=== PATIENT | male | born 1950 | race Caucasian/White ===

== ENCOUNTER → 2024-11-11 12:10 | Outpatient (CLI) | payer MEDICARE, SELFPAY ==
[2024-11-11 18:56] LABS: Add Manual Diff / Slide Review NO; Basophils Absolute Auto 0 /uL (0-100); Basophils Percent Auto 0.5 % (0-2); Eosinophils Absolute Auto 100 /uL (0-450); Eosinophils Percent Auto 1.8 % (2-4); Hematocrit 30.8 % (41-53); Hemoglobin 10.1 g/dL (13.5-17.5); Lymphocytes Absolute Auto 700 /uL (1100-4500); Mean Corpuscular HGB Conc 32.9 % (30-36); Mean Corpuscular Volume 85.1 fL (80-100); Monocytes Absolute Auto 600 /uL (0-900); Monocytes Percent Auto 10.9 % (3-14); Neutrophils Absolute Auto 4300 /uL (1500-7000); Neutrophils Percent Auto 74.8 % (50-75); Platelet Count 171 X10^3/uL (150-400); Red Blood Cell Count 3.62 X10^6/uL (4.5-5.9); Red Cell Distribution Width 16.1 % (11.6-14.8); White Blood Cell Count 5.7 X10^3/uL (4.5-11.0)
[2024-11-11 19:18] LABS: Alanine Aminotransferase 22 IU/L (<50); Albumin 4.2 g/dL (3.5-5.0); Albumin Globulin Ratio 1.8 (1.0-2.8); Alkaline Phosphatase 116 U/L (38-126); Aspartate Aminotransferase 37 IU/L (17-59); BUN Creatinine Ratio 26.8 (6-22); Bilirubin Total 0.8 mg/dL (0.2-1.3); Bilirubin Unconjugated 0.4 mg/dL (0.0-1.1); Blood Urea Nitrogen 26 mg/dL (9-20); Calcium 8.8 mg/dL (8.4-10.2); Carbon Dioxide 23 mmol/L (22-32); Chloride 105 mmol/L (98-107); Estimated Glomerular Filt Rate > 60 mL/min (>60); Globulin 2.3 g/dL (1.7-4.1); Glucose 94 mg/dL (80-110); HEMOLYSIS 17 (0-50); Potassium 4.5 mmol/L (3.4-5.1); Sodium 138 mmol/L (137-145); Total Protein 6.5 g/dL (6.3-8.2)
[2024-11-11 19:51] LABS: Testosterone 32.1 ng/dL (71.8-623)
== END ==
PROVIDERS: Visit Provider Specialist
DX: C61 Malignant neoplasm of prostate (principal); R53.83 Other fatigue; E29.1 Testicular hypofunction
CPT/HCPCS: 80048; 80076; 84153; 84403; 85025

== ENCOUNTER → 2024-11-23 10:24 | Outpatient (CLI) | payer MEDICARE, SELFPAY ==
[2024-11-23 19:24] LABS: Prostate Specific Antigen 4.47 ng/mL (0.10-4.00)
[2024-11-23 19:26] LABS: Testosterone 11.1 ng/dL (71.8-623)
== END ==
DX: C61 Malignant neoplasm of prostate (principal)
CPT/HCPCS: 84153; 84403

== ENCOUNTER → 2024-12-21 14:01 | Outpatient (CLI) | payer MEDICARE, SELFPAY ==
[2024-12-21 18:55] LABS: HEMOLYSIS < 15 (0-50); Iron 76 ug/dL (49-181)
[2024-12-21 18:59] LABS: Alanine Aminotransferase 30 IU/L (<50); Albumin 3.7 g/dL (3.5-5.0); Albumin Globulin Ratio 1.7 (1.0-2.8); Alkaline Phosphatase 121 U/L (38-126); Aspartate Aminotransferase 44 IU/L (17-59); BUN Creatinine Ratio 17.5 (6-22); Bilirubin Total 0.9 mg/dL (0.2-1.3); Bilirubin Unconjugated 0.5 mg/dL (0.0-1.1); Blood Urea Nitrogen 21 mg/dL (9-20); Calcium 8.3 mg/dL (8.4-10.2); Carbon Dioxide 25 mmol/L (22-32); Chloride 104 mmol/L (98-107); Estimated Glomerular Filt Rate > 60 mL/min (>60); Globulin 2.2 g/dL (1.7-4.1); Glucose 90 mg/dL (70-99); HEMOLYSIS < 15 (0-50); Potassium 4.5 mmol/L (3.4-5.1); Sodium 137 mmol/L (137-145); Total Protein 5.9 g/dL (6.3-8.2)
[2024-12-21 19:05] LABS: Reticulocyte Count, Percent 1.9 % (0.9-2.6)
[2024-12-21 19:06] LABS: Percent Iron Saturation 23 % (20-50); Total Iron Binding Capacity 325 ug/dL (261-462); Transferrin 268 mg/dL (206-381)
[2024-12-21 19:36] LABS: Ferritin 99 ng/mL (18-464)
[2024-12-21 19:45] LABS: Add Manual Diff / Slide Review NO; Basophils Absolute Auto 100 /uL (0-100); Basophils Percent Auto 1.8 % (0-2); Eosinophils Absolute Auto 100 /uL (0-450); Eosinophils Percent Auto 2.5 % (2-4); Hematocrit 28.7 % (41-53); Hemoglobin 9.5 g/dL (13.5-17.5); Lymphocytes Absolute Auto 600 /uL (1100-4500); Lymphocytes Percent Auto 14.1 % (25-40); Mean Corpuscular Hemoglobin 28.1 PG (26-34); Mean Corpuscular Volume 85.4 fL (80-100); Monocytes Absolute Auto 600 /uL (0-900); Monocytes Percent Auto 15.3 % (3-14); Neutrophils Absolute Auto 2700 /uL (1500-7000); Neutrophils Percent Auto 66.3 % (50-75); Platelet Count 152 X10^3/uL (150-400); Red Blood Cell Count 3.36 X10^6/uL (4.5-5.9); Red Cell Distribution Width 15.5 % (11.6-14.8)
[2024-12-21 20:07] LABS: Folate > 20.0 ng/mL (2.76-20.0); Vitamin B12 > 1000 pg/mL (239-931)
[2024-12-23 22:07] LABS: Erythropoietin 29.8 mIU/mL (2.6-18.5)
== END ==
PROVIDERS: Referring Provider Nurse Practitioner Family; Visit Provider Nurse Practitioner Family
DX: C61 Malignant neoplasm of prostate (principal); D64.9 Anemia, unspecified; R53.83 Other fatigue; E53.8 Deficiency of other specified B group vitamins; E29.1 Testicular hypofunction
CPT/HCPCS: 80048; 80076; 82607; 82668; 82728; 82746; 83540; 83550; 84153; 84403; 85025; 85045

== ENCOUNTER → 2025-02-23 12:09 | Outpatient (CLI) | payer MEDICARE, SELFPAY ==
[2025-02-23 19:26] LABS: HEMOLYSIS < 15 (0-50); Iron 73 ug/dL (49-181); Reticulocyte Count, Percent 2.1 % (0.9-2.6)
[2025-02-23 19:27] LABS: Hematocrit 27.0 % (41-53); Hemoglobin 8.9 g/dL (13.5-17.5); Mean Corpuscular HGB Conc 32.9 % (30-36); Mean Corpuscular Hemoglobin 27.2 PG (26-34); Mean Corpuscular Volume 82.6 fL (80-100); Platelet Count 120 X10^3/uL (150-400)
[2025-02-23 19:28] LABS: Add Manual Diff / Slide Review YES
[2025-02-23 19:33] LABS: Alanine Aminotransferase 19 IU/L (<50); Albumin 3.6 g/dL (3.5-5.0); Albumin Globulin Ratio 1.5 (1.0-2.8); Alkaline Phosphatase 155 U/L (38-126); Blood Urea Nitrogen 22 mg/dL (9-20); Calcium 8.3 mg/dL (8.4-10.2); Carbon Dioxide 30 mmol/L (22-32); Chloride 103 mmol/L (98-107); Estimated Glomerular Filt Rate > 60 mL/min (>60); Globulin 2.4 g/dL (1.7-4.1); Glucose 95 mg/dL (70-99); HEMOLYSIS < 15 (0-50); Potassium 3.7 mmol/L (3.4-5.1); Sodium 138 mmol/L (137-145); Total Protein 6.0 g/dL (6.3-8.2)
[2025-02-23 19:39] LABS: Percent Iron Saturation 23 % (20-50); Total Iron Binding Capacity 319 ug/dL (261-462); Transferrin 248 mg/dL (206-381)
[2025-02-23 19:46] LABS: Basophils Percent Manual 1.0 % (0-1); Eosinophils Percent Manual 1.0 % (2-4); Lymphocytes Percent Manual 9.0 % (25-45); Monocytes Percent Manual 15.0 % (2-11); Neutrophils Absolute Manual 3552 /uL (3000-5900); Segmented Neutrophils Percent 74.0 % (38-70); Total Cells Counted 100
[2025-02-23 19:47] LABS: Anisocytosis 1+; Schistocytes 1+
[2025-02-23 20:08] LABS: Ferritin 156 ng/mL (18-464)
[2025-02-23 20:35] LABS: Folate > 20.0 ng/mL (2.76-20.0); Vitamin B12 > 1000 pg/mL (239-931)
== END ==
PROVIDERS: Visit Provider Nurse Practitioner Family
DX: C61 Malignant neoplasm of prostate (principal); R53.83 Other fatigue; E29.1 Testicular hypofunction; D64.9 Anemia, unspecified
CPT/HCPCS: 80048; 80076; 82607; 82668; 82728; 82746; 83540; 83550; 84153; 84403; 85007; 85025; 85045